=== PATIENT | male | born 1990 | race Caucasian/White ===

== ENCOUNTER 2018-03-22 08:54 | Emergency (ER) | payer SELFPAY ==
[2018-03-22 09:02] VITALS: BP 128/75; PULSE 78; RESP 18; TEMP 98.1
--- NOTE | 2018-03-22 09:05 | ED ---
Upper Extremity HPI - General Chief Complaint: Extremity Injury, Upper Stated Complaint: Wrist Pain Time Seen by Provider: 03/22/18 09:01 Source: patient, RN notes reviewed Mode of arrival: ambulatory Limitations: no limitations - History of Present Illness Initial Comments: This a 28-year-old male presents emergency Department with chief complaint of right wrist injury. Patient states that he has extreme pain along the radial aspect. Patient states he is not exactly sure what happened but states he may have injured at work. Patient denies any paresthesias. He is left-hand dominant. He states his pain with flexion extension of his wrist. Patient denies any notable swelling, bruising. Denies any proximal forearm pain or discomfort of his hand. - Related Data Previous Rx's Medication Instructions Recorded Ibuprofen [Motrin] 600 mg PO Q8HR PRN #30 tab 03/22/18 Allergies Allergy/AdvReac Type Severity Reaction Status Date / Time No Known Allergies Allergy Verified 03/22/18 09:02 Review of Systems ROS Statement: Those systems with pertinent positive or pertinent negative responses have been documented in the HPI. ROS Other: All systems not noted in ROS Statement are negative. Past Medical History Past Medical History: No Reported History History of Any Multi-Drug Resistant Organisms: None Reported Past Surgical History: Bladder Surgery Additional Past Surgical History / Comment(s): ENT Past Psychological History: No Psychological Hx Reported Smoking Status: Current every day smoker Past Alcohol Use History: None Reported Past Drug Use History: Marijuana General Exam Limitations: no limitations General appearance: alert, in no apparent distress Head exam: Present: atraumatic, normocephalic, normal inspection Eye exam: Present: normal appearance, PERRL, EOMI. Absent: scleral icterus, conjunctival injection, periorbital swelling Respiratory exam: Present: normal lung sounds bilaterally. Absent: respiratory distress, wheezes, rales, rhonchi, stridor Cardiovascular Exam: Present: regular rate, normal rhythm, normal heart sounds. Absent: systolic murmur, diastolic murmur, rubs, gallop, clicks Extremities exam: Present: other (Right wrist no obvious deformity pain with range of motion flexion-extension there was able to fully pronate and supinate, there is tenderness over the radial aspect distal, no snuffbox tenderness, there is no tenderness of proximal forearm or noted of the hand. Neurovascular intact) Skin exam: Present: warm, dry, intact, normal color. Absent: rash Course Vital Signs 03/22/18 09:01 Temperature 98.1 F Pulse Rate 78 Respiratory 18 Rate Blood Pressure 128/75 O2 Sat by Pulse 97 Oximetry Medical Decision Making - Medical Decision Making 28-year-old male presents emergency from for right wrist injury. Patient had x- rays obtained which showed no acute fracture. Patient has a right wrist sprain versus tendinitis. Patient be Emir wrap, started on anti-inflammatories return parameters were discussed. Disposition Clinical Impression: Sprain of wrist, right Disposition: HOME SELF-CARE Condition: Stable Instructions: Wrist Injury (ED) Additional Instructions: Please return to the Emergency Department if symptoms worsen or any other concerns. Prescriptions: Ibuprofen [Motrin] 600 mg PO Q8HR PRN #30 tab PRN Reason: Pain Is patient prescribed a controlled substance at d/c from ED?: No Referrals: Jorge L Galvez MD [STAFF PHYSICIAN] - 1-2 days Time of Disposition: 09:23
--- NOTE | 2018-03-22 09:16 | XR ---
EXAMINATION TYPE: XR wrist complete RT DATE OF EXAM: 03/22/2018 COMPARISON: NONE HISTORY: 28-year-old male with wrist pain TECHNIQUE: 4 views FINDINGS: The radiocarpal and distal radial ulnar joint as well as the midcarpal compartment are intact. No acu te fracture, subluxation, or dislocation seen. IMPRESSION: No acute osseous abnormality seen.
== END 2018-03-22 09:37 | disposition home or self-care (01) ==
LOC: EC 08:54
DX: S63.501A Unspecified sprain of right wrist, initial encounter (principal); F17.200 Nicotine dependence, unspecified, uncomplicated
CPT/HCPCS: 99283

== ENCOUNTER 2018-09-09 23:39 | Emergency (ER) | payer OTHER ==
[2018-09-10] MEDS ORDERED: KETAMINE 50 MG/ML 10 ML VIAL IM ONE (00:02)
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
[2018-09-10] MEDS ORDERED: LORazepam 2 MG/ML INJ IM STA (00:11)
[2018-09-10] MEDS ORDERED: ZIPRASIDONE 20 MG VIAL IM STA (00:11)
[2018-09-10 03:23] LABS: Basophils % (A) 0 %; Eosinophils # (A) 0.1 k/uL (0-0.7); Eosinophils % (A) 0 %; HCT 50.9 % (39.0-53.0); HGB 17.2 gm/dL (13.0-17.5); Lymphocytes # (A) 1.7 k/uL (1.0-4.8); Lymphocytes % (A) 10 %; MCH 30.6 pg (25.0-35.0); MCHC 33.7 g/dL (31.0-37.0); MCV 90.8 fL (80.0-100.0); Monocytes # (A) 0.6 k/uL (0-1.0); Monocytes % (A) 3 %; Neutrophils # (A) 15.1 k/uL (1.3-7.7); Neutrophils % (A) 86 %; Platelet Count 379 k/uL (150-450); RBC 5.61 m/uL (4.30-5.90); RDW 12.5 % (11.5-15.5); WBC 17.6 k/uL (3.8-10.6)
[2018-09-10 03:30] LABS: Acetaminophen <10.0 ug/mL; Anion Gap 14 mmol/L; Blood Urea Nitrogen 20 mg/dL (9-20); Calcium 10.1 mg/dL (8.4-10.2); Carbon Dioxide 21 mmol/L (22-30); Chloride 111 mmol/L (98-107); Glucose 99 mg/dL (74-99); Potassium 3.4 mmol/L (3.5-5.1); Sodium 146 mmol/L (137-145)
[2018-09-10 03:57] LABS: Alcohol 182 mg/dL
[2018-09-10 09:30] VITALS: BP 142/71; PULSE 90; RESP 18; TEMP 97
== END 2018-09-10 09:52 | disposition home or self-care (01) ==
LOC: EC 23:39
DX: F10.129 Alcohol abuse with intoxication, unspecified (principal); R45.1 Restlessness and agitation; R00.0 Tachycardia, unspecified; F17.200 Nicotine dependence, unspecified, uncomplicated
CPT/HCPCS: 82075; 36415; 80048; 85025; 83520; 80320; 99285; 96372 ×2; J2060; J3486

== ENCOUNTER 2019-06-17 11:26 | Emergency (ER) | payer OTHER ==
[2019-06-17 11:35] VITALS: BP 136/77; PULSE 88; RESP 18; TEMP 97.9
--- NOTE | 2019-06-17 12:13 | XR ---
EXAMINATION TYPE: XR elbow complete LT , 3 VIEWS DATE OF EXAM ORDERED: 06/17/2019 HISTORY: fall. COMPARISON: None. FINDINGS: No fracture, dislocation or elbow joint effusion is seen. Note is made of a tiny olecranon spur. IMPRESSION: NO ACUTE OSSEOUS LESION.
[2019-06-17] MEDS ORDERED: LIDOCAINE 1% INJ 10MG/ML (20 ML MDV) SQ ONE (12:27)
--- NOTE | 2019-06-17 12:30 | ED ---
Wound/Laceration HPI - General Chief Complaint: Wound/Laceration Stated Complaint: laceration on left elbow Time Seen by Provider: 06/17/19 11:36 Source: patient, RN notes reviewed, old records reviewed Mode of arrival: ambulatory Limitations: no limitations - History of Present Illness Initial Comments: This is a 29-year-old malepatient had a fall from standing in the parking lot, fell down landing on left elbow with laceration to left elbow. Patient was leaving work. Patient had the event happened to him last night after work and denies any drugs or alcohol. Patient left L elbow pain and persistent bleeding. Laceration to back of left elbow. Patient no significant medical history takes no medications. -: hour(s) Extremity Location: Left: Elbow (3cm laceration) Place: work Patient Tetanus UTD: Yes Context: fall Associated Symptoms: none - Related Data Previous Rx's Medication Instructions Recorded Ibuprofen [Motrin] 600 mg PO Q8HR PRN #30 tab 03/22/18 Allergies Allergy/AdvReac Type Severity Reaction Status Date / Time No Known Allergies Allergy Verified 06/17/19 11:35 Review of Systems ROS Statement: Those systems with pertinent positive or pertinent negative responses have been documented in the HPI. ROS Other: All systems not noted in ROS Statement are negative. Past Medical History Past Medical History: No Reported History History of Any Multi-Drug Resistant Organisms: None Reported Past Surgical History: Bladder Surgery Additional Past Surgical History / Comment(s): ENT Past Psychological History: No Psychological Hx Reported Smoking Status: Current every day smoker Past Alcohol Use History: None Reported Past Drug Use History: Marijuana General Exam - General Exam Comments Initial Comments: 3 cm laceration to back of left elbow Limitations: no limitations General appearance: alert, in no apparent distress Head exam: Present: atraumatic, normocephalic, normal inspection Eye exam: Present: normal appearance, PERRL, EOMI. Absent: scleral icterus, conjunctival injection, periorbital swelling ENT exam: Present: normal exam, mucous membranes moist Neck exam: Present: normal inspection. Absent: tenderness, meningismus, lymphadenopathy Respiratory exam: Present: normal lung sounds bilaterally. Absent: respiratory distress, wheezes, rales, rhonchi, stridor Cardiovascular Exam: Present: regular rate, normal rhythm, normal heart sounds. Absent: systolic murmur, diastolic murmur, rubs, gallop, clicks GI/Abdominal exam: Present: soft, normal bowel sounds. Absent: distended, tenderness, guarding, rebound, rigid Extremities exam: Present: normal inspection, full ROM, normal capillary refill. Absent: tenderness, pedal edema, joint swelling, calf tenderness Back exam: Present: normal inspection Neurological exam: Present: alert, oriented X3, CN II-XII intact Psychiatric exam: Present: normal affect, normal mood Skin exam: Present: warm, dry, intact, normal color. Absent: rash Course Vital Signs 06/17/19 11:33 Temperature 97.9 F Pulse Rate 88 Respiratory 18 Rate Blood Pressure 136/77 O2 Sat by Pulse 99 Oximetry Procedures - Laceration Laceration #1 Consent Obtained: verbal consent Indication: laceration Site: upper extremity (elbow) Size (cm): 3 Description: linear Depth: simple, single layer Anesthetic Used: lidocaine 1%, lidocaine 2% Anesthesia Technique: local infiltration Size of Sutures: 3-0 Technique: simple, interrupted Patient Tolerated Procedure: well Medical Decision Making - Medical Decision Making 29-year-old male here for evaluation of fall with left elbow laceration, x-rays negative for fracture lacerations or. Patient to be discharged - Radiology Data Radiology results: report reviewed (x-ray left elbow is negative for traumatic injury), image reviewed Disposition Clinical Impression: Laceration, Laceration of right elbow, Fall Disposition: HOME SELF-CARE Condition: Good Instructions (If sedation given, give patient instructions): Care For Your Stitches (ED), Laceration (ED) Is patient prescribed a controlled substance at d/c from ED?: No Referrals: None,Stated [Primary Care Provider] - 1-2 days
== END 2019-06-17 12:48 | disposition home or self-care (01) ==
LOC: EC 11:26
DX: S51.012A Laceration without foreign body of left elbow, initial encounter (principal); F17.200 Nicotine dependence, unspecified, uncomplicated; W18.30XA Fall on same level, unspecified, initial encounter; Y93.89 Activity, other specified; Y92.481 Parking lot as the place of occurrence of the external cause
CPT/HCPCS: 73080; 99283; 12002; J2001

== ENCOUNTER 2019-06-30 12:05 | Emergency (ER) | payer OTHER ==
[2019-06-30 12:57] VITALS: TEMP 98.1
--- NOTE | 2019-06-30 13:51 | ED ---
General Adult HPI - General Chief complaint: Extremity Injury, Upper Stated complaint: elbow pain Time Seen by Provider: 06/30/19 13:17 Source: patient, RN notes reviewed, old records reviewed (Previous x-ray reviewed) Mode of arrival: ambulatory Limitations: no limitations - History of Present Illness Initial comments: Patient is a pleasant 29-year-old male presenting to the emergency department with concern regarding drainage from his left elbow. Patient states he just had sutures removed a day or 2 ago from his left elbow. Patient states he has noticed some drainage come from it. Patient states he did bump it. Patient states sutures were placed on s Kasie. Patient complains of some mild discomfort as well as the drainage. No fevers. No history of similar symptoms previously. Patient states injury occurred from when he dropped dishes. - Related Data Previous Rx's Medication Instructions Recorded Ibuprofen [Motrin] 600 mg PO Q8HR PRN #30 tab 03/22/18 Mupirocin 2% Oint [Bactroban 2% 1 applic TOPICAL BID #30 gm 06/30/19 Oint] Sulfamethox-Tmp 800-160Mg [Bactrim 2 each PO Q12HR #40 tab 06/30/19 DS 800-160 mg] Allergies Allergy/AdvReac Type Severity Reaction Status Date / Time No Known Allergies Allergy Verified 06/30/19 12:57 Review of Systems ROS Statement: Those systems with pertinent positive or pertinent negative responses have been documented in the HPI. ROS Other: All systems not noted in ROS Statement are negative. Constitutional: Denies: fever Eyes: Denies: eye pain ENT: Denies: ear pain Respiratory: Denies: dyspnea Cardiovascular: Denies: chest pain Endocrine: Denies: fatigue Gastrointestinal: Denies: abdominal pain Genitourinary: Denies: dysuria Musculoskeletal: Denies: back pain Skin: Reports: as per HPI Past Medical History Past Medical History: No Reported History History of Any Multi-Drug Resistant Organisms: None Reported Past Surgical History: Bladder Surgery Additional Past Surgical History / Comment(s): ENT Past Psychological History: No Psychological Hx Reported Smoking Status: Current every day smoker Past Alcohol Use History: None Reported Past Drug Use History: Marijuana General Exam Limitations: no limitations General appearance: alert Head exam: Present: normocephalic Eye exam: Present: normal appearance Respiratory exam: Present: normal lung sounds bilaterally Cardiovascular Exam: Present: regular rate, normal rhythm Extremities exam: Present: other (Left elbow with small area less than 1 cm mildly opened from recent injury. There is minimal purulent drainage and mild surrounding erythema.) Neurological exam: Present: alert. Absent: motor sensory deficit Psychiatric exam: Present: normal affect, normal mood Skin exam: Present: other (Left elbow with mild erythema and mild purulent drainage. No addition there is partially healed wounds of the right hand.) Course Vital Signs 06/30/19 12:53 Temperature 98.1 F Pulse Rate 89 Respiratory 16 Rate Blood Pressure 110/60 O2 Sat by Pulse 98 Oximetry Disposition Clinical Impression: Cellulitis of left elbow Disposition: HOME SELF-CARE Condition: Stable Instructions (If sedation given, give patient instructions): Cellulitis (ED) Additional Instructions: Please follow-up with primary care physician within 2 days for recheck. Twice daily wash area with soap and water, apply antibiotic ointment, and keep bandaged. Return for fever, increased redness or pain or swelling, worsening symptoms or other concerns. [facility]. Prescriptions: Sulfamethox-Tmp 800-160Mg [Bactrim DS 800-160 mg] 2 each PO Q12HR #40 tab Mupirocin 2% Oint [Bactroban 2% Oint] 1 applic TOPICAL BID #30 gm Is patient prescribed a controlled substance at d/c from ED?: No Referrals: Armando Good MD [REFERRING] - 1-2 days Syed Saenz MD [STAFF PHYSICIAN] - 1-2 days Time of Disposition: 13:49
[2019-06-30 14:04] VITALS: RESP 20
[2019-06-30 14:05] VITALS: BP 115/78; PULSE 82
== END 2019-06-30 14:07 | disposition home or self-care (01) ==
LOC: EC 12:05
DX: L03.114 Cellulitis of left upper limb (principal); F17.200 Nicotine dependence, unspecified, uncomplicated; Z87.828 Personal history of other (healed) physical injury and trauma; Z98.890 Other specified postprocedural states
CPT/HCPCS: 87070; 87077; 87186; 87205; 99284

== ENCOUNTER 2019-12-25 16:16 | Emergency (ER) | payer OTHER ==
[2019-12-25 16:30] VITALS: BP 109/66; PULSE 94; RESP 18; TEMP 98.7
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
== END 2019-12-25 17:20 | disposition home or self-care (01) ==
LOC: EC 16:16
DX: T65.91XA Toxic effect of unspecified substance, accidental (unintentional), initial encounter (principal); T23.671A Corrosion of second degree of right wrist, initial encounter; T32.0 Corrosions involving less than 10% of body surface; T31.0 Burns involving less than 10% of body surface; F17.200 Nicotine dependence, unspecified, uncomplicated; Z86.14 Personal history of Methicillin resistant Staphylococcus aureus infection
CPT/HCPCS: 99283